=== PATIENT | female | born 1950 | race Caucasian/White ===

== ENCOUNTER 2020-04-22 07:29 | Emergency (ER) | payer BC, SELFPAY ==
[2020-04-22 07:37] VITALS: BP 101/83; PULSE 60; RESP 16; TEMP 36.5; O2SAT 99
--- NOTE | 2020-04-22 08:00 | ED.GENADUL_ITS ---
Discharge Plan Disposition Patient Disposition: HOME Condition: Stable Discharge Details Chief Complaint: Allergic Clinical Impression: Constrictive jewelry of finger Primary Care Provider: Verónica Cook ED Provider: Radames Herndon Home Meds and New Rx's Prescriptions: Continued levothyroxine 25 MCG tablet 75 mcg PO DAILY RF: 0 Discharge Instructions Additional Instructions: Remove rings when at risk for insect bite/swelling. Follow-up with regular doctor. They may refer you to retail department supervisor for further testing if requested. May apply ice and/or topical Benadryl ointment to reduce swelling & discomfort. Return for any acute concern. Medical Decision Making 69-year-old female stung by a bee with no systemic reaction. Now with right ring finger swelling and proximal white gold band in place. Requesting and I agree with removal. Ring cutter placed by nursing staff and ring removed. Patient stable for discharge. HPI General Mode of arrival: ambulatory . Date/Time Provider Initiated Documentation: 04/22/20 07:33 . Limitations to Documentation: no limitations . Information obtained by: patient . History of Present Illness 69 year old F presents to the emergency department with the chief complaint of Swelling at right ring finger with a ring on, described as moderate, Quality is described as constant, and is localized to the upper extremity. Patient started experiencing this hour(s) and it has been constant. No relieving factors improve symptom(s), No exacerbating factors reported . Patient did receive the following treatments prior to arrival, none Related Data Home Medications Medication Instructions Recorded Confirmed levothyroxine 75 mcg PO DAILY 11/01/16 04/22/20 Allergies Allergy/AdvReac Type Severity Reaction Status Date / Time codeine Allergy Mild Unverified 05/24/17 14:54 bee Allergy Uncoded 04/22/20 07:40 General Stated Complaint: Allergic TARYN: 4 Review of Systems Narrative: 4 systems reviewed and otherwise negative [facility] Social History Smoking/Tobacco Use Status: Never Substance use type: does not use Do you feel safe in your relationship?: Yes Exam Narrative Exam Narrative: GEN: awake, alert, oriented 3. Pleasant, well groomed, interactive. HEAD: Normocephalic, atraumatic EYES: PERRL, EOMI EXT: Full ROM, right ring finger with white cold thin band like proximal phalanx and distal soft tissue swelling. Sensation intact, capillary refill less than 2 seconds. Neuro: Grossly normal neurologic exam, conversant, interactive. Psych: Speech fluent, thoughts congruent, affect normal Course Vital Signs Vital signs: Vital Signs Temperature 36.5 C 04/22/20 07:37 Pulse 60 04/22/20 07:37 Respiratory Rate 16 04/22/20 07:37 Blood Pressure 101/83 04/22/20 07:37 Pulse Oximetry 99 04/22/20 07:37 Temperature 36.5 C 04/22/20 07:37 Temperature Source Skin 04/22/20 07:37 Pulse 60 04/22/20 07:37 Respiratory Rate 16 04/22/20 07:37 Respiratory Effort Non-Labored 04/22/20 07:44 Respiratory Pattern Normal 04/22/20 07:44 Blood Pressure 101/83 04/22/20 07:37 Blood Pressure Position Sitting 04/22/20 07:37 Pulse Oximetry 99 04/22/20 07:37 Oxygen Delivery Method Room Air 04/22/20 07:37 Oxygen Flow Rate 0 04/22/20 07:37 Pain Level 0 04/22/20 07:37
== END 2020-04-22 08:20 | disposition home or self-care (01) ==
PROVIDERS: Emergency Provider Emergency Medicine; PCP Internal Medicine
DX: T63.441A Toxic effect of venom of bees, accidental (unintentional), initial encounter (principal); R22.31 Localized swelling, mass and lump, right upper limb; W49.04XA Ring or other jewelry causing external constriction, initial encounter
CPT/HCPCS: 99282; 99283

== ENCOUNTER 2020-10-17 03:44 | Outpatient (CLI) | payer BC, SELFPAY ==
[2020-10-18 18:28] LABS: COVID-19 RT-PCR Result NEGATIVE (Negative)
== END 2020-10-17 04:04 ==
PROVIDERS: PCP Internal Medicine; Visit Provider Nurse Practitioner Family
DX: R19.7 Diarrhea, unspecified (principal)
CPT/HCPCS: U0003